=== PATIENT | female | born 1985 | race African-American/Black ===

== ENCOUNTER 2017-01-25 13:06 | Emergency (ER) | payer OTHER ==
[~2017-01-25] VITALS: Ht 152.4 cm; Wt 74.8 kg
[~2017-01-25 13:06] MED LIST: AMOXICILLIN 50500 M1 PO; AMOXICILLIN 50500 MG PO; AUGMENTIN 875875 MG PO; AZITHROMYCIN PO; KEFLEX500 MG PO; MICONAZOLE 31 EACH VG; NAPROSYN500 MG PO; NOHOMEMEDICATIONS; PERCOCET 5-3251 EACH PO; PRENATAL; PROMETHAZINE-C120 ML PO; SLOW FE 160MG160 MG PO; ZPAK PO
[2017-01-25] MEDS ORDERED: KEFLEX500 MG PO (14:25)
[2017-01-25] MEDS ORDERED: IVERMECTIN3 MG PO (14:25)
[2017-01-25] MEDS ORDERED: MEDROLDOSEPACK PO (14:25)
[2017-01-25 14:35] VITALS: BP 137/78
== END 2017-01-25 15:02 | disposition home or self-care (01) ==
LOC: ER 13:06
DX: L03.114 Cellulitis of left upper limb (principal); L03.113 Cellulitis of right upper limb; F10.99 Alcohol use, unspecified with unspecified alcohol-induced disorder

== ENCOUNTER 2017-08-14 08:26 | Emergency (ER) | payer OTHER ==
[~2017-08-14] VITALS: Ht 152.4 cm; Wt 74.8 kg
[~2017-08-14 08:26] MED LIST changes: +IVERMECTIN3 MG PO; +MEDROLDOSEPACK PO
[2017-08-14] MEDS ORDERED: GUAIFEN-CODEINE10 ML PO (09:41)
[2017-08-14] MEDS ORDERED: TESSALON PERLE100 MG PO (09:41)
[2017-08-14 10:00] VITALS: BP 115/62
== END 2017-08-14 10:02 | disposition home or self-care (01) ==
LOC: ER 08:26
DX: J40 Bronchitis, not specified as acute or chronic (principal); F10.99 Alcohol use, unspecified with unspecified alcohol-induced disorder

== ENCOUNTER 2018-01-02 19:43 | Emergency (ER) | payer BC ==
[~2018-01-02] VITALS: Ht 149.9 cm; Wt 74.8 kg
[~2018-01-02 19:43] MED LIST changes: +GUAIFEN-CODEINE10 ML PO; +TESSALON PERLE100 MG PO
[2018-01-02 20:12] LABS: URINE BILIRUBIN NEGATIVE (Negative); URINE BLOOD 3+ (Negative); URINE CLARITY SL CLOUDY; URINE COLOR YELLOW; URINE GLUCOSE-RANDOM* NEGATIVE (Negative); URINE KETONES NEGATIVE (Negative); URINE LEUKOCYTES NEGATIVE (Negative); URINE NITRITE NEGATIVE (Negative); URINE PROTEIN (DIPSTICK) NEGATIVE (Negative); URINE UROBILINOGEN 0.2 E.U./dl (0.2-1.0)
[2018-01-02 20:17] LABS: SQUAMOUS 4-10 Moderate /LPF (0-3)
[2018-01-02 20:18] LABS: AMORPHOUS URATES Moderate /LPF (None Seen); BACTERIA 1-9 Few /HPF (None Seen); CASTS None Seen /LPF (None Seen); URINE RBC 0-2 Rare /HPF (0-2); URINE WBC None Seen /HPF (0-5)
[2018-01-02 21:29] VITALS: BP 127/83
== END 2018-01-02 21:30 | disposition home or self-care (01) ==
LOC: ER 19:43
PROVIDERS: Nurse Practitioner
DX: N93.8 Other specified abnormal uterine and vaginal bleeding (principal)

== ENCOUNTER 2018-10-31 14:32 | Emergency (ER) | payer BC ==
[~2018-10-31] VITALS: Ht 149.9 cm; Wt 79.4 kg
[2018-10-31] MEDS ORDERED: TOPROL XL25 MG PO (14:41)
[2018-10-31] MEDS ORDERED: NORCO 5-325 TA1 EACH PO (17:06)
[2018-10-31 17:47] VITALS: BP 143/69
== END 2018-10-31 17:15 | disposition home or self-care (01) ==
LOC: ER 14:32
DX: R51 Headache (principal)

== ENCOUNTER 2019-02-10 21:05 | Emergency (ER) | payer BC ==
[~2019-02-10] VITALS: Ht 152.4 cm; Wt 79.4 kg
[~2019-02-10 21:05] MED LIST changes: +NORCO 5-325 TA1 EACH PO; +TOPROL XL25 MG PO
[2019-02-10] MEDS ORDERED: NORFLEX100 MG PO (23:38)
[2019-02-10] MEDS ORDERED: NAPROSYN500 MG PO (23:38)
[2019-02-10 23:55] VITALS: BP 132/70
== END 2019-02-10 23:55 | disposition home or self-care (01) ==
LOC: ER 21:05
DX: S29.012A Strain of muscle and tendon of back wall of thorax, initial encounter (principal); S80.02XA Contusion of left knee, initial encounter; S90.31XA Contusion of right foot, initial encounter; W18.30XA Fall on same level, unspecified, initial encounter; Y93.89 Activity, other specified; Y92.512 Supermarket, store or market as the place of occurrence of the external cause; Y99.8 Other external cause status

== ENCOUNTER 2019-03-23 21:55 | Emergency (ER) | payer OTHER ==
[~2019-03-23] VITALS: Ht 149.9 cm; Wt 77.1 kg
[~2019-03-23 21:55] MED LIST changes: +NORFLEX100 MG PO
[2019-03-23 23:28] LABS: ABSOLUTE NEUTROPHILS 3.5 thou/uL (1.4-8.2); BASOPHILS 1.3 % (0.0-2.0); EOSINOPHILS 1.3 % (0.0-3.0); HEMATOCRIT 35.9 % (37.0-47.0); HEMOGLOBIN 12.3 gm/dL (12.0-15.0); MCH 30.2 pg (26.0-34.0); MCHC 34.2 g/dL (28.0-37.0); MCV 88.3 fL (80.0-100.0); MONOCYTES 8.2 % (1.0-8.0); PLATELET COUNT 311 thou/uL (150-400); POLYS 59.2 % (36.0-66.0); RBC 4.07 mil/uL (4.20-5.00); RDW 13.5 % (10.5-14.5)
[2019-03-23 23:37] LABS: CALCIUM 8.6 mg/dL (8.5-10.1); CREATININE 0.7 mg/dL (0.6-1.0); POTASSIUM 3.8 mmol/L (3.5-5.1)
[2019-03-24 00:39] LABS: ESR (SEDRATE) 9 mm/hour (0-19)
[2019-03-24] MEDS ORDERED: MOBIC15 MG PO (01:15)
[2019-03-24 01:32] VITALS: BP 132/73
--- NOTE | 2019-03-24 08:05 | EKG ---
[address] [employer] [place] [address] ELECTROCARDIOGRAM REPORT Name: GILL LAMA Room #: [facility]#: [id number] ������������������ Admission: 03/23/19 ������������������ Attend Phys: Discharge: ������������������ Date of : 87 Report #: [id number] ����������������������������������������������������������������� [id number] THIS REPORT FOR: //name// [facility] ED Test Date: 2019-03-23 Test Time: 23:18:56 Pat Name: GILL LAMA Department: Room: Gender: F Rn Access: MARILIA : 1985 Requested By: Debora Elam Order Number: [id number] MD: Santiago Frias Measurements Intervals [place] Rate: 66 P: 35 IN: 164 QRS: 16 QRSD: 87 T: -2 QT: 383 QTc: 402 Interpretive Statements Sinus rhythm Low voltage, precordial leads Borderline T abnormalities, inferior leads Compared to ECG 12/10/2016 11:42:12 Low QRS voltage now present T-wave abnormality now present Ventricular premature complex(es) no longer present Electronically Signed On 03-24-2019 8:05:22 CDT by Santiago Frias [email or web address] ��������������������������������������������� <ELECTRONICALLY SIGNED> ���������������������������������������� By: Santiago Frias MD ��������������������������������������������� 03/24/19 0805 2318 2318 Santiago Frias MD /EPI
== END 2019-03-24 01:32 | disposition home or self-care (01) ==
LOC: ER 21:55
PROVIDERS: Emergency Medicine
DX: L52 Erythema nodosum (principal); I48.91 Unspecified atrial fibrillation

== ENCOUNTER 2019-12-19 20:46 | Emergency (ER) | payer OTHER ==
[~2019-12-19] VITALS: Ht 149.9 cm; Wt 72.6 kg
[~2019-12-19 20:46] MED LIST changes: +MOBIC15 MG PO
[2019-12-19 21:39] LABS: ABSOLUTE NEUTROPHILS 3.5 thou/uL (1.4-8.2); BASOPHILS 1.2 % (0.0-2.0); EOSINOPHILS 0.9 % (0.0-3.0); HEMATOCRIT 39.4 % (37.0-47.0); HEMOGLOBIN 13.2 gm/dL (12.0-15.0); LYMPHOCYTES 37.6 % (24.0-44.0); MCH 29.4 pg (26.0-34.0); MCHC 33.4 g/dL (28.0-37.0); MCV 87.8 fL (80.0-100.0); MONOCYTES 8.2 % (1.0-8.0); PLATELET COUNT 374 thou/uL (150-400); POLYS 52.1 % (36.0-66.0); RBC 4.48 mil/uL (4.20-5.00); RDW 14.6 % (10.5-14.5); WBC 6.7 thou/uL (4.0-11.0)
[2019-12-19 21:51] LABS: ANION GAP 9 mmol/L (7-16); BUN 14 mg/dL (7-18); CALCIUM 9.1 mg/dL (8.5-10.1); CHLORIDE 100 mmol/L (98-107); CO2 27 mmol/L (21-32); CREATININE 0.8 mg/dL (0.6-1.0); GLUCOSE 92 mg/dL (74-106); POTASSIUM 3.5 mmol/L (3.5-5.1); SODIUM 136 mmol/L (136-145)
[2019-12-19 22:01] LABS: ALBUMIN 3.6 g/dL (3.4-5.0); SGOT 16 U/L (15-37); SGPT 21 U/L (30-65); TOTAL BILIRUBIN 0.5 mg/dL (<0.1-1.0); TOTAL PROTEIN 7.4 g/dL (6.4-8.2); TROPONIN-I <0.06 ng/mL (<0.06)
[2019-12-19 22:45] VITALS: BP 131/72
--- NOTE | 2019-12-20 10:28 | EKG ---
[facility] [place] [address] ELECTROCARDIOGRAM REPORT Name: GILL LAMA Room #: [facility]P [facility]#: [id number] Admission: 12/19/19 Attend Phys: Discharge: 12/19/19 Date of : 87 Report #: [id number] THIS REPORT FOR: cc: ALEX - [facility] family physician/PCP ALEX - [place] family physician/PCP Huan Judd MD [facility] THIS REPORT FOR: //name// [facility] ED Test Date: 2019-12-19 Test Time: 20:59:40 Pat Name: GILL LAMA Department: Room: Gender: Blood Typer: SHYANN : 1985 Requested By: Jerod Sosa Order Number: [id number] MD: Huan Judd Measurements Intervals [place] Rate: 84 P: 54 [place]: 150 QRS: 31 QRSD: 91 T: 7 QT: 358 QTc: 424 Interpretive Statements Sinus rhythm Compared to ECG 03/23/2019 23:18:56 No significant abnormality Electronically Signed On 12-20-2019 10:27:07 EMERGENCY DEPARTMENT MANAGER by Huan Judd [email or web address] <ELECTRONICALLY SIGNED> By: Huan Judd MD, [facility] 12/20/197 58 58 Huan Judd MD, [facility] /EPI
== END 2019-12-19 22:45 | disposition home or self-care (01) ==
LOC: ER 20:46
PROVIDERS: Physician Assistant
DX: R00.2 Palpitations (principal); I48.91 Unspecified atrial fibrillation